=== PATIENT | female | born 1975 | race Caucasian/White ===

== ENCOUNTER 2020-12-09 09:12 | Inpatient (IN) ==
[2020-12-09] MEDS ORDERED: Lidocaine HCL 4 ML Topical Solution (Laryng-O-Jet Kit Sterile Pak) TP ONE (09:22)
[2020-12-09] MEDS ORDERED: *HR* Propofol 200 MG/20 ML VIAL IVP ONE (09:22)
[2020-12-09] MEDS ORDERED: *HR* Succinylcholine 200 MG/10 ML VIAL IVP ONE (09:22)
[2020-12-09] MEDS ORDERED: *HR* Rocuronium Bromide 50 MG/5 ML VIAL ONE (09:22)
[2020-12-09] MEDS ORDERED: Ondansetron 4 MG/2 ML VIAL ONE (09:22)
[2020-12-09] MEDS ORDERED: *HR* FentaNYL (PF) 100 MCG/2 ML VIAL ONE (09:22)
[2020-12-09] MEDS ORDERED: Lidocaine -MPF 2% 5 ML VIAL ONE (09:22)
[2020-12-09] MEDS ORDERED: *HR* Midazolam HCl 2 MG/2 ML VIAL ONE (09:22)
[2020-12-09] MEDS ORDERED: Acetaminophen IV 1,000 MG/100 ML BAG IVPB ONE (09:31)
[2020-12-09] MEDS ORDERED: CeFAZolin Syr 2,000MG/20 ML 2,000 MG/20 ML SYRINGE IVPB ONE (09:34)
[2020-12-09] MEDS ORDERED: Promethazine 6.25 MG in Water for inj. (sterile) 20 ML IVPB PRN (09:37)
[2020-12-09] MEDS ORDERED: *HR* Meperidine 25 MG/ML SYRINGE IVP PRN (09:37)
[2020-12-09] MEDS ORDERED: *HR* HYDROmorphone PF 0.5 MG/0.5 ML SYRINGE IVP PRN (09:37)
[2020-12-09] MEDS ORDERED: Ondansetron 4 MG/2 ML VIAL IVP PRN (09:37)
[2020-12-09] MEDS ORDERED: Ringers Solution, Lactated 1,000 ML IVC SCH (09:45)
[2020-12-09] MEDS ORDERED: Sugammadex Sodium 200 MG/2 ML VIAL IV ONE ×2 (10:18→14:43)
[2020-12-09] MEDS ORDERED: *HR* Belladonna Alkaloids/Opium 30 MG RECTAL SUPPOSITORY RC ONE (11:15)
[2020-12-09] MEDS ORDERED: Bupivacaine/EPI 1:200k 0.25% 50 ML VIAL ONE (11:15)
[2020-12-09] MEDS ORDERED: *HR* Morphine Sulfate/PF 10 MG/10 ML AMPUL ONE (11:22)
[2020-12-09] MEDS ORDERED: Bupivacaine-MPF 0.25% 10 ML VIAL ONE (11:22)
[2020-12-09] MEDS ORDERED: *HR* HYDROmorphone (PF) 1 MG/ML SYRINGE IVP PRN (12:06)
[2020-12-09] MEDS ORDERED: EPHEDrine 50 MG/ML VIAL ONE (12:59)
[2020-12-09] MEDS ORDERED: Naloxone 0.4 MG/ML INJ IVP PRN (15:20)
[2020-12-09] MEDS ORDERED: *HR* OxyCODONE/APAP 5/325 TABLET PO PRN ×2 (15:20→17:32)
[2020-12-09] MEDS ORDERED: *HR* HYDROcodone/Acet 5/325 mg TABLET PO PRN ×2 (15:20→17:30)
[2020-12-09] MEDS ORDERED: Sennosides 8.6 MG TABLET PO PRN ×2 (15:20→21:00)
[2020-12-09] MEDS ORDERED: Ibuprofen 600 MG TABLET PO SCH (18:00)
[2020-12-09] MEDS ORDERED: *HR* LORazepam 0.5 MG TABLET PO SCH (21:00)
[2020-12-09] MEDS: Ibuprofen 600 MG TABLET PO SCH (21:25)
[2020-12-09] MEDS: Simethicone 80 MG TAB.CHEW PO PRN (21:40)
[2020-12-10] MEDS: Mag Hydrox/Al Hydrox/Simeth 30 ML UDC PO PRN ×2 (00:07→07:52)
[2020-12-10] MEDS: Ibuprofen 600 MG TABLET PO SCH ×3 (03:24→15:51)
[2020-12-10] MEDS ORDERED: Famotidine 20 MG TABLET PO SCH (07:30)
[2020-12-10] MEDS ORDERED: Loratadine/Pseudophed (12 HR) 1 EACH TABLET PO SCH (09:00)
[2020-12-10] MEDS ORDERED: Fluticasone Propionate Nasal 50 MCG/SPRAY BOTTLE NS SCH (09:00)
[2020-12-10] MEDS: Simethicone 80 MG TAB.CHEW PO PRN (09:38)
[2020-12-10 14:25] VITALS: O2SAT 99
[2020-12-10 15:50] VITALS: BP 124/77; PULSE 80; TEMP 98.5
== END 2020-12-10 16:00 | disposition home or self-care (01) | DRG 743 ==
LOC: SAMDAY 09:12 → 1NENUOBS 15:54
PROVIDERS: ADMIT Obstetrics & Gynecology; ATTEND Obstetrics & Gynecology
PROC: GYNLAVH (ICD-10-PCS; 2020-12-09 10:50)